=== PATIENT | male | born 1950 | race Caucasian/White ===

== ENCOUNTER 2016-12-29 21:21 | Emergency (ER) | payer OTHER ==
[~2016-12-29 21:21] MED LIST: ADVAIR 250-501 EACH INH; ALLERGY10 M1 PO; ASPIR 8181 MG PO; BENADRYL 25MG C25 MG PO; COZAAR100 MG PO; EPINEPHRIN0.3 MG/0.3 INJ; IMDUR ER TAB 6060 MG PO; LOPRESSOR 25 MG25 MG PO; SIMVASTATIN40 MG PO; SINGULAIR10 MG PO; SYMBICORT 160-1 INHA INH; XARELTO20 MG PO; ZANTAC150 MG PO
[2016-12-29 23:09] LABS: HEMOGLOBIN 15.9 gm/dl (14.0-17.5); RED BLOOD COUNT 5.34 M/UL (4.20-5.50); WHITE BLOOD COUNT 13.7 K/UL (4.5-11.0)
[2017-04-25] MEDS ORDERED: ISOSORBIDE MONO30 MG PO (20:33)
[2017-04-27] MEDS ORDERED: CEFUROXIME500 MG PO (15:41)
== END 2016-12-30 00:10 | disposition home or self-care (01) ==
LOC: ER1 21:21
PROVIDERS: Physician Assistant
DX: T78.1XXA Other adverse food reactions, not elsewhere classified, initial encounter (principal); I25.10 Atherosclerotic heart disease of native coronary artery without angina pectoris; E78.5 Hyperlipidemia, unspecified; I10 Essential (primary) hypertension; J45.909 Unspecified asthma, uncomplicated; J98.4 Other disorders of lung; Z95.828 Presence of other vascular implants and grafts
CPT/HCPCS: 36415; 71020; 80053; 82550; 82553; 83874; 84484; 85025; 93005; 96374; 96375; 99285; J1200; J2930; J7050

== ENCOUNTER 2020-12-21 21:14 | Emergency (ER) | payer OTHER ==
[~2020-12-21 21:14] MED LIST changes: +ATORVASTATIN CA40 MG PO; +CEFUROXIME500 MG PO; +FLOMAX 0.4 MG0.4 MG PO; +FUROSEMIDE40 MG PO; +ISOSORBIDE MONO30 MG PO; +KEFLEX500 MG PO; +LOPRESSOR 50 MG50 MG PO; +METOPROLOL TART25 MG PO; +POTASSIUM CHLO10 MEQ PO; +PREDNISONE10 MG PO
[2021-01-03] MEDS ORDERED: COZAAR 50MG TAB50 MG PO
== END 2020-12-21 22:45 | disposition home or self-care (01) ==
LOC: ER1 21:14
DX: S40.012A Contusion of left shoulder, initial encounter (principal); S70.02XA Contusion of left hip, initial encounter; I11.0 Hypertensive heart disease with heart failure; E11.9 Type 2 diabetes mellitus without complications; J45.909 Unspecified asthma, uncomplicated; Z90.49 Acquired absence of other specified parts of digestive tract; Z79.899 Other long term (current) drug therapy; Z79.4 Long term (current) use of insulin; Z88.8 Allergy status to other drugs, medicaments and biological substances; W19.XXXA Unspecified fall, initial encounter; Y92.009 Unspecified place in unspecified non-institutional (private) residence as the place of occurrence of the external cause
CPT/HCPCS: 72170; 73030; 73060; 73552; 99283

== ENCOUNTER 2021-01-03 12:21 | Inpatient (IN) | payer OTHER ==
[~2021-01-03] VITALS: Ht 167.6 cm; Wt 154.7 kg
[~2021-01-03 12:21] MED LIST changes: +COZAAR 50MG TAB50 MG PO
[2021-01-03 15:27] LABS: HEMOGLOBIN 10.4 gm/dl (14.0-17.5); RED BLOOD COUNT 3.4 M/UL (4.20-5.50); WHITE BLOOD COUNT 9.4 K/UL (4.5-11.0)
[2021-01-03 15:51] LABS: BUN/CREATININE RATIO 33 (0-10)
[2021-01-03] MEDS ORDERED: CRESTOR20 MG PO (23:54)
[2021-01-03] MEDS ORDERED: LOPRESSOR 25 MG25 MG PO (23:56)
[2021-01-03] MEDS ORDERED: BUMETANIDE0.5 MG PO (23:58)
[2021-01-03] MEDS ORDERED: JARDIANCE10 MG PO (23:58)
[2021-01-03] MEDS ORDERED: ISORDIL TAB 3030 MG PO (23:59)
[2021-01-04 04:25] LABS: HEMOGLOBIN 9.9 gm/dl (14.0-17.5); RED BLOOD COUNT 3.3 M/UL (4.20-5.50)
[2021-01-04 04:48] LABS: BUN/CREATININE RATIO 35 (0-10)
[2021-01-05 06:02] LABS: HEMOGLOBIN 9.8 gm/dl (14.0-17.5); RED BLOOD COUNT 3.26 M/UL (4.20-5.50); WHITE BLOOD COUNT 6.8 K/UL (4.5-11.0)
[2021-01-07 07:01] LABS: HEMOGLOBIN 10.2 gm/dl (14.0-17.5); RED BLOOD COUNT 3.42 M/UL (4.20-5.50)
[2021-01-08 02:38] LABS: HEMOGLOBIN 9.8 gm/dl (14.0-17.5); RED BLOOD COUNT 3.3 M/UL (4.20-5.50); WHITE BLOOD COUNT 7.5 K/UL (4.5-11.0)
[2021-01-09 04:33] LABS: HEMOGLOBIN 9.9 gm/dl (14.0-17.5); RED BLOOD COUNT 3.29 M/UL (4.20-5.50); WHITE BLOOD COUNT 6.7 K/UL (4.5-11.0)
[2021-01-09] MEDS ORDERED: ELIQUIS 5 MG TAB5 MG PO (08:58)
[2021-01-09] MEDS ORDERED: BUMETANIDE1 MG PO (08:58)
[2021-01-09] MEDS ORDERED: HUMALOG 10100 UNITS/ SC (08:58)
[2021-01-09] MEDS ORDERED: AMIODARONE HCL200 MG PO (08:58)
[2021-01-09] MEDS ORDERED: IPRAT-ALBUT 0.5-3 ML NEB (10:55)
[2021-01-10 08:29] LABS: HEMOGLOBIN 10.1 gm/dl (14.0-17.5); RED BLOOD COUNT 3.39 M/UL (4.20-5.50); WHITE BLOOD COUNT 7.8 K/UL (4.5-11.0)
[2021-01-11 03:45] LABS: HEMOGLOBIN 10.2 gm/dl (14.0-17.5); RED BLOOD COUNT 3.42 M/UL (4.20-5.50); WHITE BLOOD COUNT 8.1 K/UL (4.5-11.0)
[2021-01-14 04:07] LABS: RED BLOOD COUNT 3.34 M/UL (4.20-5.50)
[2021-01-15 03:04] LABS: HEMOGLOBIN 9.8 gm/dl (14.0-17.5); RED BLOOD COUNT 3.29 M/UL (4.20-5.50); WHITE BLOOD COUNT 7.6 K/UL (4.5-11.0)
[2021-01-15] MEDS ORDERED: BUMETANIDE1 MG PO (13:07)
[2021-01-15] MEDS ORDERED: COZAAR 50MG TAB50 MG PO (13:07)
--- NOTE | 2021-01-15 17:45 | NUR ---
RN REMOVED PATIENT'S IV AND CATHETER. PATIENT'S INSISTED THAT ONCE HOME, SHE WOULD HAVE HER SON IN LAW ASSIST WITH TRANSFERRING HIM INTO THEIR HOME. RN ASKED PATIENT IF HE FELT COMFORTABLE WITH THIS INSTEAD OF BEING TRANSFERRED BY EMS AND PATIENT STATED HE DID. PATIENT IS ALERT AND ORIENTED TO PERSON, PLACE, TIME, AND SITUATION. RN AND ANN CHOPRA UTILIZED FACILITY WALKER AND ASSISTED PATIENT TO HIS FEET THEN AMBULATED HIM TO FACILITY WHEELCHAIR WITH OXYGEN IN PLACE @ 2L WITHOUT DIFFICULTY. PATIENT'S STATED DESTINATION WAS ONLY A FEW MINUTES AWAY FROM THE HOSPITAL AND THAT PATIENT COULD TOLERATE THE RIDE WITHOUT OXYGEN. SHE STATED THAT HE COULD GO PERIODS OF TIME WITHOUT OXYGEN AT HOME AND THAT THEY WOULD APPLY IT SOON THEY GOT HOME. PATIENT'S STATED HE HAS OXYGEN THERAPY AT HOME. RN ASKED PATIENT IF HE WAS COMFORTABLE WITH THIS, AND HE STATED THAT HE WAS. RN AND ANN WALL TRANSPORTED PATIENT TO PRIVATE VEHICLE IN EMERGENCY PARKING LOT LOOP. RN AND TECH MOVED WHEELCHAIR CLOSE POSSIBLE TO CAR DOOR AND REMOVED PATIENT OXYGEN. RN ASKED PATIENT IF HE FELT COMFORTABLE AMBULATING WITHOUT OXYGEN, PATIENT STATED HE WAS. RN AND TECH ASSISTED PATIENT TO A STANDING POSITION WHILE PATIENT'S MOVED WHEELCHAIR FROM [place]. PATIENT TURNED WITH STAFF ASSIST AND BEGAN TO SIT IN PASSENGER SIDE OF CAR. ONCE SEATED, PATIENT BEGAN PANICKING AND STATED HE WAS GOING TO FALL. RN PLACED HER KNEE IN FRONT OF PATIENT AND HELD HIM IN PLACE IN CAR. PATIENT'S LEGS WENT STRAIGHT AND HE REFUSED TO REPOSITION INTO A SITTING POSITION INSIDE VEHICLE AND STATED HE WANTED TO GO BY AMBULANCE. RN APPLIED OXYGEN TO PATIENT AND TOLD HIM THAT IT COULD BE ARRANGED, BUT HE NEEDED TO CATCH HIS BREATH AND FEEL COMFORTABLE ENOUGH TO GET BACK INTO WHEELCHAIR AND RETURN TO THE FLOOR. RN INSTRUCTED TECH TO GO GET ER STAFF TO ASSIST WITH TRANSFER TO PREVENT PATIENT INJURY. STAFF ARRIVED AND ASSISTED RN WITH HELPING PATIENT INTO WHEELCHAIR. RN AND TECH WHEELED PATIENT BACK TO 4108 AND LEFT IN ROOM WITH . NO S/SX OF DISTRESS NOTED. RN NOTIFIED DR. ABDALLA OF [facility], INSTRUCTED RN NOT TO ATTEMPT TO TRANSFER PATIENT WITHOUT OXYGEN. RN AND RESOURCE NURSE ADRIANA WORKED ON AMBULANCE TRANSFER PAPERWORK. ONCE AMBBULANCE ARRIVED, EMS ASKED RN TO HOLD STRETCHER STEADY WHILE THEY ASSISTED PATIENT TO A STANDING POSITION AND PIVOTED TO STRETCHER. ONCE STANDING, PATIENT STOOD STRAIGHT AND WITHOUT DIFFICULTY WHILE WHEELCHAIR WAS MOVED OUT OF REACH AND HE ONCE AGAIN BEGAN PANICKING AND STATED HE WAS GOING TO FALL. TO PREVENT INJURY, THE TWO EMS WORKERS ASSISTED PATIENT TO THE GROUND. ONCE PATIENT WAS ON THE GROUND, HE WAS CONSOLED BY STAFF AND EMS EMPLOYEES. STAFF INSTRUCTED PATIENT TO BEND HIS KNEES AND INFORM US WHEN HE WAS READY TO STAND. PATIENT ASSISTED TO A STANDING POSITION ONCE MORE AND WAS SEATED ON STRETCHER. PATIENT THEN TURNED BY STAFF INTO A LYING POSITION AND SEAT-BELTED INTO STRETCHER. RN ASESSED PATIENT, NO INJURIES WERE OBSERVED. PATIENT DENIED PAIN. NO S/SX OF DISTRESS NOTED. PATIENT TRANSFERRED OUT OF FACILITY BY EMS. REPORT CALLED TO [facility]PL[facility]EE DONNIE AND PATIENT INFORMATION FAXED TO FACILITY. DISCHARGE INSTRUCTIONS AND MEDICATION SCRIPTS SENT WITH PATIENT'S .
== END 2021-01-15 18:48 | disposition home or self-care (01) | DRG 291 ==
LOC: ER1 12:21 → CDU 19:18 → PROG CARE 19:18 → MED SURG 4 19:18 → PROG CARE 01-07 06:25 → MED SURG 4 01-12 16:40
PROVIDERS: Emergency Medicine; Family Medicine; Internal Medicine; Internal Medicine Infectious Disease; Internal Medicine Nephrology; ADMIT Internal Medicine
DX: I13.0 Hypertensive heart and chronic kidney disease with heart failure and stage 1 through stage 4 chronic kidney disease, or unspecified chronic kidney disease (principal); J96.01 Acute respiratory failure with hypoxia; J96.02 Acute respiratory failure with hypercapnia; I50.33 Acute on chronic diastolic (congestive) heart failure; G93.41 Metabolic encephalopathy; N17.9 Acute kidney failure, unspecified; E87.2 Acidosis; I95.9 Hypotension, unspecified; I48.91 Unspecified atrial fibrillation; E66.01 Morbid (severe) obesity due to excess calories; N18.30 Chronic kidney disease, stage 3 unspecified; J44.9 Chronic obstructive pulmonary disease, unspecified; G47.33 Obstructive sleep apnea (adult) (pediatric); R60.1 Generalized edema; Z20.822 Contact with and (suspected) exposure to COVID-19; I25.10 Atherosclerotic heart disease of native coronary artery without angina pectoris; D63.8 Anemia in other chronic diseases classified elsewhere; Z88.6 Allergy status to analgesic agent; Z88.8 Allergy status to other drugs, medicaments and biological substances; Z99.81 Dependence on supplemental oxygen; Z80.9 Family history of malignant neoplasm, unspecified; Z82.49 Family history of ischemic heart disease and other diseases of the circulatory system; Z90.49 Acquired absence of other specified parts of digestive tract; Z98.52 Vasectomy status; Z88.1 Allergy status to other antibiotic agents; Z91.040 Latex allergy status; Z91.018 Allergy to other foods; Z68.30 Body mass index [BMI] 30.0-30.9, adult; Z79.82 Long term (current) use of aspirin; Z79.52 Long term (current) use of systemic steroids; Z79.899 Other long term (current) drug therapy; Z79.01 Long term (current) use of anticoagulants
CPT/HCPCS: ECHO; 36415; 36600; 70450; 71045; 76705; 80048; 80053; 80202; 81001; 82140; 82550; 82553; 82570; 82728; 82803; 82962; 83036; 83540; 83550; 83605; 83735; 83874; 83880; 84100; 84132; 84133; 84156; 84300; 84439; 84443; 84484; 85025; 85027; 85045; 87040; 87077; 87086; 89050; 93005; 93306; 94640; 94660; 94760; 97110-GP-CQ; 97162; 97530-GP-CQ; 99285; J3370; J7070; P9047; Q9957; U0002

== ENCOUNTER 2021-10-17 14:03 | Emergency (ER) | payer OTHER ==
[~2021-10-17 14:03] MED LIST changes: +AMIODARONE HCL200 MG PO; +BUMETANIDE0.5 MG PO; +BUMETANIDE1 MG PO; +CRESTOR20 MG PO; +ELIQUIS 5 MG TAB5 MG PO; +HUMALOG 10100 UNITS/ SC; +IPRAT-ALBUT 0.5-3 ML NEB; +ISORDIL TAB 3030 MG PO; +JARDIANCE10 MG PO
[2021-10-17 14:25] LABS: HEMOGLOBIN 8.8 gm/dl (14.0-17.5); WHITE BLOOD COUNT 18.6 K/UL (4.5-11.0)
== END 2021-10-17 20:30 | disposition short-term general hospital (02) ==
LOC: ER1 14:03
PROVIDERS: Emergency Medicine
DX: N13.2 Hydronephrosis with renal and ureteral calculous obstruction (principal); I25.10 Atherosclerotic heart disease of native coronary artery without angina pectoris; J44.9 Chronic obstructive pulmonary disease, unspecified; Z20.822 Contact with and (suspected) exposure to COVID-19; I10 Essential (primary) hypertension; N17.9 Acute kidney failure, unspecified; E87.5 Hyperkalemia
CPT/HCPCS: 36600; 80048; 81001; 82803; 83605; 85025; 87040; 93005; 96374; 96375; 96376; 99285; J0610; J0696; J2270; J2405; U0002